=== PATIENT | male | born 1995 | race Caucasian/White ===

== ENCOUNTER 2023-10-01 19:16 | Emergency (ER) | payer SELFPAY ==
--- NOTE | ~2023-10-01 | CT_ITS ---
Noncontrast CT scan of the cervical spine Technique: Multiple contiguous axial [address] images of the cervical spine were obtained and rec onstructed in 2D sagittal and coronal planes on the acquisition scanner. Dose reduction technique was used on this scan by utilizing automated exposure control, adjustment of the mA and/or kV according to patient size. The dose-length product (DLP) was 316.12 mGy-cm. Clinical History: Pain Findings: No fractures or dislocations. Unremarkable visualized bony structures. The intervertebral disc spaces are preserved. No prevertebral soft tissue swelling. Impression: No fracture or subluxation of the cervical spine. Reviewed, dictated and finalized at location . ING PANTOGRAPH MACHINE OPERATOR Impression: No fracture or subluxation of the cervical spine.
--- NOTE | ~2023-10-01 | CT_ITS ---
Noncontrast CT scan of the lumbar spine CLINICAL HISTORY: Status post fall TECHNIQUE: Axial noncontrast imaging of the lumbar spine was performed. Sagittal and coronal reformat suzanne images were constructed. Dose reduction technique was used on this scan by utilizing automated ex posure control and iterative reconstruction technique. The dose-length product (DLP) was 424.79 mGy-c m. FINDINGS: There is no fracture or subluxation of the lumbar spine. Vertebral bodies maintain normal h eight and alignment. Intervertebral disc spaces are well preserved. No significant disc bulge or herniation evident at any lumbar level. There is no spinal canal stenosi s. There is mild to moderate neural foraminal narrowing bilaterally at L5-S1. Remaining neural forami na are preserved. Paravertebral soft tissues are unremarkable. Impression: No acute abnormality. Bilateral neural foraminal narrowing at L5-S1, as detailed above. Reviewed, dictated and finalized at [facility]. ETRICS CONSULTANT Impression: No acute abnormality. Bilateral neural foraminal narrowing at L5-S1, as detailed above.
--- NOTE | ~2023-10-01 | CT_ITS ---
Non-contrast Head CT History: Status post fall Technique: Axial non-contrast imaging of the brain was performed. Dose reduction technique was used on this scan by utilizing automated exposure control and iterative reconstruction technique. The dose -length product (DLP) was 605.33 mGy-cm. Findings: There is no evidence of intracranial hemorrhage, mass lesion, or acute infarct. Brain par enchyma appears normal. The ventricles and subarachnoid spaces are normal in size. The calvarium ap pears normal. The visualized paranasal sinuses and mastoid air cells are clear. Impression: No significant abnormality seen. Reviewed, dictated and finalized at location . ING MACHINE TENDER HELPER Impression: No significant abnormality seen.
[2023-10-01 19:16] VITALS: BP 129/65; PULSE 108; RESP 18; TEMP 36.9; O2SAT 97
--- NOTE | 2023-10-01 19:22 | ED.GENADULT ---
HPI - General Adult General Chief complaint: Fall Stated complaint: etoh induced fall Time Seen by Provider: 10/01/23 19:18 History of Present Illness HPI narrative: This is a 28-year-old male presenting ED after a fall. Patient was drinking a massive amount of alcohol today for the [employer]. He then states that he woke up emergency for people on scene he fell backwards and struck his head lost consciousness. They then called EMS brought hospital. patient is complaining of headache and pain in his lower back which he says he has broken twice. No neurologic deficits Related Data Allergies Allergy/AdvReac Type Severity Reaction Status Date / Time No Known Allergies Allergy Unverified 11/17/15 22:25 [facility] Family History Family History (Updated 09/25/17 @ 14:19 by DOCTOR UNKNOWN) Father Family history of mental disorder Patient's father is in good health Family history of arthritis Mother Asthma Patient's mother is in good health Social History Social History (Updated 10/21/19 @ 10:28 by Sita Thomas) Social History: Single Smoking packs per day: 0.5 Smoking cigarettes per day: 10.0 Smoking status: Former smoker Tobacco type: cigarettes and e-cigarettes/vaping Second hand tobacco smoke exposure: Yes Smoking end date: 06/21/19 Alcohol intake: current Alcohol use details: socially Substance use: never Substance use type: does not use Living arrangements: with family Occupation/Education: occupation Gender identity (if verbalized by the patient): Male Exam Narrative: APPEARANCE: smells of alcohol. patient is wearing a pair of [employer] boxers and nothing else. When asked to give thumbs up on both of his hands the patient raised his middle fingers above his head and flicked off the room. Head: atraumatic. EYES: EOMI, CURTIS NOSE: Atraumatic NECK: no midline cervical tenderness, midline lumbar tenderness RESPIRATORY: No increased rate of breathing, CTAB CARDIOVASCULAR: RRR, ABDOMINAL: Non-distended, soft nontender no guarding rebound MUSCULOSKELETAl: No obvious deformities NEURO: Alert. Cranial nerves 2-12 grossly intact. Sensation light touch, motor function cerebellar function intact for 4 extremities. SKIN:: Warm, dry. Normal color PSYCHIATRIC: Normal affect Course Vital Signs Vital signs: Vital Signs Temperature 98.5 F 10/01/23 19:16 Pulse Rate 108 H 10/01/23 19:16 Respiratory Rate 18 10/01/23 19:16 Blood Pressure 129/65 10/01/23 19:16 Pulse Oximetry 97 10/01/23 19:16 Oxygen Delivery Room Air 10/01/23 19:16 Temperature 98.5 F 10/01/23 19:25 Pulse Rate 95 10/01/23 19:25 Respiratory Rate 18 10/01/23 19:25 Blood Pressure 129/65 10/01/23 19:25 Pulse Oximetry 95 10/01/23 19:25 Oxygen Delivery Room Air 10/01/23 19:16 Medical Decision Making MDM Narrative Medical decision making narrative: -Course: 28-year-old male presenting intoxicated after a fall. CTs of head C-spine and L-spine unremarkable. Patient was discharged into family custody. -DDX includes but is not limited to: Alcohol intoxication, ICH, concussion -Co-morbidities complicating care: ETOH -Hx from independent Sources: EMS -Independent interpretation of studies: trauma imaging negative -Shared decision making / Disposition: Discharged Vital Signs Vital Signs: Vital Signs Temperature 98.5 F 10/01/23 19:16 Pulse Rate 108 H 10/01/23 19:16 Respiratory Rate 18 10/01/23 19:16 Blood Pressure 129/65 10/01/23 19:16 Pulse Oximetry 97 10/01/23 19:16 Oxygen Delivery Room Air 10/01/23 19:16 Temperature 98.5 F 10/01/23 19:25 Pulse Rate 95 10/01/23 19:25 Respiratory Rate 18 10/01/23 19:25 Blood Pressure 129/65 10/01/23 19:25 Pulse Oximetry 95 10/01/23 19:25 Oxygen Delivery Room Air 10/01/23 19:16 Discharge Plan Discharge Clinical Impression: Fall, ETOH abuse Patient Disposition: Home,
[2023-10-01 19:25] VITALS: BP 129/65; PULSE 95; RESP 18; TEMP 36.9; O2SAT 95
== END 2023-10-01 21:15 | disposition home or self-care (01) ==
LOC: ANHED 20:17
PROVIDERS: Emergency Provider Emergency Medicine
DX: S06.9X9A Unspecified intracranial injury with loss of consciousness of unspecified duration, initial encounter (principal); S39.92XA Unspecified injury of lower back, initial encounter; F10.129 Alcohol abuse with intoxication, unspecified; Z87.891 Personal history of nicotine dependence; Y90.9 Presence of alcohol in blood, level not specified; W18.39XA Other fall on same level, initial encounter
CPT/HCPCS: 70450; 72125; 72131; 99284

== ENCOUNTER 2025-06-12 23:01 | Emergency (ER) | payer BC, SELFPAY ==
--- NOTE | ~2025-06-12 | CT_ITS ---
EXAMINATION: CT abdomen pelvis wo con DATE: 06/12/2025 23:33 INDICATION: Right inguinal hernia TECHNIQUE: Computed tomography (CT) of the abdomen and pelvis was performed without intravenous contrast. The dose-length product was 201.42 mGy-cm. Automated exposure control and iterative reconstruction technique were employed. COMPARISON: None. FINDINGS: Lung bases unremarkable. Heart size normal. No significant pleural or pericardial effusion. The liver, spleen, pancreas, adrenal glands and kidneys are unremarkable. Gallbladder is present. Nonobstructive bowel gas pattern. There is fat stranding in the right inguinal subcutaneous tissues with underlying lymphadenopathy, suspicious for cellulitis. No abscess. No evidence for hernia. There is grade 1 degenerative spondylolisthesis at L5-S1. No acute osseous abnormality. IMPRESSION: 1. Fat stranding of the right inguinal subcutaneous soft tissues with underlying lymphadenopathy, suspicious for cellulitis with reactive lymph node enlargement. Reviewed, dictated and finalized at location O. IMPRESSION: 1. Fat stranding of the right inguinal subcutaneous soft tissues with underlyin g lymphadenopathy, suspicious for cellulitis with reactive lymph node enlargeme nt.
--- OUTSIDE RECORDS SUMMARY | 2025-06-12 23:03 | XMS_ITS | Clinical Summary ---
Author Organization [facility] Address [facility] [place] [address] Care Team Providers Care Manager Government Name Role Phone Holden Sita Karen DRILL SHARPENER OPERATOR Primary Care Provider Unavailable Allergies No known active allergies Medications escitalopram 10 MG tablet Take 10 mg by mouth daily. Active ondansetron 4 MG disintegrating tablet Take 1 tablet (4 mg total) by mouth every 8 (eight) hours as needed for Nausea. 10 tablet Active Social History Tobacco Use Types Packs/Day Years Used Date Smoking Tobacco: Never Assessed Sex and Gender Information Value Date Recorded Sex Assigned at Not on file Legal Sex Male 6:55 PM CDT Gender Identity Not on file Sexual Orientation Not on file Last Filed Vital Signs Vital Sign Reading Time Taken Comments Blood Pressure 114/69 06/12/2021 3:00 PM CDT Pulse 62 06/12/2021 3:00 PM CDT Temperature 36.6 C (97.9 F) 06/12/2021 1:28 PM CDT Respiratory Rate 20 06/12/2021 3:00 PM CDT Oxygen Saturation 97% 06/12/2021 3:00 PM CDT Inhaled Oxygen Concentration - - Weight 56.2 kg (124 lb) 06/12/2021 1:28 PM CDT Height 167.6 cm (5' 6) 06/12/2021 1:28 PM CDT Body Mass Index 20.01 06/12/2021 1:28 PM CDT Plan of Treatment Health Maintenance Due Date Last Done Comments Annual Physical 1999 Hepatitis C 2014 DTaP, Tdap and Td Vaccines ( 2 - Tdap) 2015 10/20/1997 Hepatitis B Vaccines (1 of 3 - 19+ 3-dose series) 2015 HPV Vaccines (1 - 3-dose SCD M series) 2023 COVID-19 Vaccine (3 - 2024-2 6 season) 2025 12/07/2020, 11/09/2020 Influenza Adult (#1) 2025 Hepatitis A Vaccines Aged Out No long er eligible based on patient's age to complete this topic Meningococcal B Vaccine Aged Out No l onger eligible based on patient's age to complete this topic Meningococcal Vaccine Aged Out No lorelei ora eligible based on patient's age to complete this topic Pneumococcal Vaccine: Pediatrics (0 to 5 Years) and At-Risk Patients (6 to 49 Years) Aged Out No longer eligible b ased on patient's age to complete this topic RSV Immunizations Under 20 Months Aged Out No longer eligible b ased on patient's age to complete this topic Insurance Care Teams Manager Government Relationship Specialty Start Date End Date Sita Hatch FNP PCP - General Nurse Practitioner Family 06/12/21
[2025-06-12 23:06] VITALS: BP 143/95; PULSE 71; RESP 16; TEMP 36.4; O2SAT 99
--- NOTE | 2025-06-12 23:23 | ED.MALEGU ---
HPI - Male Genitourinary General Chief complaint: Urogenital-Male Stated complaint: right groin pain, swelling Time Seen by Provider: 06/12/25 23:05 History of Present Illness HPI Narrative: 29-year-old otherwise healthy male presenting to the emergency depart with right groin pain and swelling as well as rash to his inguinal region. Patient states for last week he has been having a wet rash in between his gently region bilateral inguinal region that is very itchy. He states he has tried some gold Gandara powder as well as hydrocortisone cream with no help. Take Tylenol for the pain with no help. He started feeling a red painful area that was tender to palpation the right groin. 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 No history of hernias. Was otherwise in his normal state of health. No nausea, vomiting, dysuria, hematuria, constipation, obstipation, lack of flatus, bloody diarrhea. Tolerating oral intake. No traumatic injuries. Denies any history of STDs or concerns for STDs at this time. No urethritis type symptoms. No dysuria. No discharge. States that he scratched himself significantly in the inguinal region trying to alleviate the itchiness and now has some excoriations there. Related Data Allergies Allergy/AdvReac Type Severity Reaction Status Date / Time No Known Allergies Allergy Verified 06/12/25 23:09 [facility] Family History Family History (Updated 09/25/17 @ 14:19 by DOCTOR UNKNOWN) Father Family history of mental disorder Patient's father is in good health Family history of arthritis Mother Asthma Patient's mother is in good health Social History Social History (Updated 10/21/19 @ 10:28 by Sita Thomas) Social History: Single Smoking packs per day: 0.5 Smoking cigarettes per day: 10.0 Smoking status: Former smoker Tobacco type: cigarettes and e-cigarettes/vaping Second hand tobacco smoke exposure: Yes Smoking end date: 06/21/19 Alcohol intake: current Alcohol use details: socially Substance use: never Substance use type: does not use Living arrangements: with family Occupation/Education: occupation Gender identity (if verbalized by the patient): Male Exam Narrative: GENERAL: [Well-appearing, well-nourished, and in no acute distress.] HEAD: [Normocephalic, atraumatic.] EYES: [PERRLA and EOMI.] ENT: Nares clear, no rhinorrhea or epistaxis. Mucous membranes moist. NECK: Supple. CHEST: [Clear to auscultation. No respiratory distress.] HEART: [Regular rate and rhythm]. No murmur heard. [Normal peripheral pulses.] ABDOMEN: [Soft, nondistended], [nontender], [No rigidity or guarding] : Inguinal canal has a right-sided inguinal hernia versus lymph node that is soft without any overlying skin changes. Tender to palpation. The intertriginous areas in both inguinal canals have what appears to be of red erythematous irritated rash and on the right side has some excoriations that appear broad based and shallow without any bleeding. No penile lesions, no penile discharge. EXTREMITIES: Normal range of motion. [No edema.] SKIN: Warm, dry, no rash. NEURO: [No focal deficits]. Alert and oriented [x3.] PSYCH: [Normal mood and affect.] Course Vital Signs Vital signs: Vital Signs Temperature 36.4 C 06/12/25 23:06 Pulse Rate 71 06/12/25 23:06 Respiratory Rate 16 06/12/25 23:06 Blood Pressure 143/95 H 06/12/25 23:06 Pulse Oximetry 99 06/12/25 23:06 Oxygen Delivery Room Air 06/12/25 23:06 Temperature 36.4 C 06/12/25 23:06 Pulse Rate 71 06/12/25 23:06 Respiratory Rate 16 06/12/25 23:06 Blood Pressure 143/95 H 06/12/25 23:06 Pulse Oximetry 99 06/12/25 23:06 Oxygen Delivery Room Air 06/12/25 23:06 MDM - Male Genitourinary MDM Narrative Medical decision making narrative: 29-year-old otherwise healthy male presenting to the emergency depart with right groin pain and swelling as well as rash to his inguinal region. Patient states for last week he has been having a wet rash in between his gently region bilateral inguinal region that is very itchy. He states he has tried some gold Gandara powder as well as hydrocortisone cream with no help. Take Tylenol for the pain with no help. He started feeling a red painful area that was tender to palpation the right groin. 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 No history of hernias. Was otherwise in his normal state of health. No nausea, vomiting, dysuria, hematuria, constipation, obstipation, lack of flatus, bloody diarrhea. Tolerating oral intake. No traumatic injuries. Denies any history of STDs or concerns for STDs at this time. No urethritis type symptoms. No dysuria. No discharge. States that he scratched himself significantly in the inguinal region trying to alleviate the itchiness and now has some excoriations there. Inguinal canal has a right-sided inguinal hernia versus lymph node that is soft without any overlying skin changes. Tender to palpation. The intertriginous areas in both inguinal canals have what appears to be of red erythematous irritated rash and on the right side has some excoriations that appear broad based and shallow without any bleeding. No penile lesions, no penile discharge. Patient hemodynamically stable without any fever, tachycardia or hypoxemia. Unremarkable abdominal examination otherwise. Suspicion for potential skin irritation or infection such as yeast infection given that he works and a moist environment and states he frequently gets chafe venous between his legs versus something like a sexually transmitted disease given the ulcerations/excoriations. Patient is adamant that he scratched his wounds open and that they are not there previously but they were intensely itchy. Possibility of something like HSV/genital herpes verses gonorrhea, chlamydia, Trichomonas. Does have a tender area in the right inguinal canal consistent with either a tender lymph nodes/movement without any overlying skin changes versus more likely inguinal hernia. IV was established, basic labs obtained, CT scan ordered. Culture of the wounds and HSV test ordered. Gonorrhea chlamydia Trichomonas and urinalysis ordered. CT scan shows no hernia but does have anal lymphadenopathy consistent with exam findings. No fluid collections, no subcutaneous emphysema. No intra-abdominal process otherwise. Patient's STD panel so far is negative. Culture results will be sent out and patient was leave the results on this portal and made aware of this. Re-evaluated and his rash did improve with the miconazole cream but he still had the shallow base tender ulcers so we will treat him empirically for HSV2. He was given a dose of valacyclovir and prescribed both medications. Will follow up with his regular doctor. Medical Records Attestation: I reviewed the patient's medical records. Lab Data Attestation: I reviewed the patient's lab results. 06/12/25 23:47 06/12/25 23:47 Labs: Lab Results 06/12/25 06/12/25 Range/Units 23:47 23:48 WBC 6.5 (4.5-10.0) K/mm3 RBC 4.75 (4.6-6.20) M/mm3 Hgb 14.5 (14.0-18.0) g/dL Hct 43.1 (42.0-52.0) % MCV 90.7 (80-100) fl MCH 30.5 (26-34) pg MCHC 33.6 (32-36) g/dl RDW 12.8 (11.5-14.5) % Plt Count 255 (150-375) k/mm3 MPV 9.1 (7.4-10.4) fl Immature Gran % (Auto) 0.6 H (0-0.5) % Neut % (Auto) 43.0 L (45.5-73.1) % Lymph % (Auto) 38.2 (18.3-44.2) % [place] % (Auto) 12.6 H (2.6-8.5) % Eos % (Auto) 4.5 H (0-4.4) % Baso % (Auto) 1.1 (0.2-1.2) % Lymph # (Auto) 2.48 (0.9-3.2) K/mm3 [place] # (Auto) 0.8 H (0.1-0.6) K/mm3 Eos # (Auto) 0.3 (0-0.3) K/mm3 Baso # (Auto) 0.1 (0.0-0.1) K/mm3 Abs Immat Gran (auto) 0.04 H (0.00-0.031) K/mm3 Absolute Neuts (auto) 2.8 (1.3-6.7) K/mm3 Absolute Nucleated RBC 0.000 (0.0-0.012) K/mm3 Nucleated RBC % 0.0 (0.0-0.2) % Sodium 135 L (137-145) mmol/L Potassium 4.3 (3.4-5.0) mmol/L Chloride 104 (98-107) mmol/L Carbon Dioxide 27 (22-30) mmol/L Anion Gap 4 (4-12) mmol/L BUN 14 (9-20) mg/dL Creatinine 0.96 (0.7-1.3) mg/dL Estim Creat Clear Calc 86 ml/min Estimated GFR > 60 (59 - ) Glucose 113 H (65-110) mg/dL Calcium 9.5 (8.4-10.2) mg/dL Total Bilirubin 0.3 (0.2-1.3) mg/dL AST 36 (17-59) U/L ALT 22 (6-50) U/L Alkaline Phosphatase 67 (38-126) U/L Total Protein 7.3 (6.3-8.2) g/dL Albumin 4.2 (3.5-5.1) g/dL Urine Color Yellow (Yellow) Urine Appearance Clear (Clear) Urine pH 6.0 (5.0-9.0) Ur Specific [place] 1.026 (1.001-1.035) Urine Protein Negative (Negative) mg/dL Urine Glucose (UA) Negative (Negative) mg/dL Urine Ketones Trace H (Negative) mg/dL Ur Blood (Man) Negative (Negative) Urine Nitrate Negative (Negative) Urine Bilirubin Negative (Negative) Urine Urobilinogen 1.0 (<2.0) mg/dL Leukocyte Esterase Rfl Negative (Negative) FIDELIA/UL C. trachomatis (PCR) Not detected (NOT DETECTE) N. gonorrhoeae (PCR) Not detected (NOT DETECTE) T. vaginalis (PCR) Not detected (NOT DETECTE) Imaging Data Attestation: I personally reviewed and interpreted this imaging study as follows: My impression: Inguinal lymphadenopathy right-sided Discharge Plan Discharge Clinical Impression: Herpetic lesion, Skin yeast infection, Inguinal lymphadenopathy Patient Disposition: Home Condition: Stable Instructions: Antibiotic Form, Genital Herpes Infection (ED), Skin Yeast Infection (ED) Additional Instructions: CT scan shows inguinal lymphadenopathy or inflamed lymph nodes. No signs of hernia. Symptoms did improve with miconazole cream but the shallow based ulcerations look potentially herpetic in nature. Will treat this empirically for genital herpes as well as yeast infection with antiviral is and cream. Follow-up with your primary care provider and the culture tests are sent out and will be available in your portal upon results. Patient Language: Cymro Prescriptions: New valacyclovir 1 gram tablet 1,000 mg PO Q12H 7 Days Qty: 14 0RF miconazole nitrate 2 % cream 1 applic topical BID Qty: 14 0RF Follow-up/Referrals: PHYSICIAN,FUEL CELL DESIGNER [Primary Care Provider, Internal Medicine] Time of Disposition: 03:03
[2025-06-12] MEDS: MICONAZOLE NITRATE 2% CREAM 30 GM TUBE 1 APPLIC TOPICAL (23:53)
[2025-06-13 00:02] LABS: Add Urine Microscopic? NO; Appearance Urine Clear (Clear); Glucose Urine UA Negative (Negative); Leukocyte Esterase Ur Negative LEU/UL (Negative); Nitrate Urine Negative (Negative); Specific Grav Ur 1.026 (1.001-1.035)
[2025-06-13 00:07] LABS: Alanine Aminotransferase 22 U/L (6-50); Albumin Level 4.2 g/dL (3.5-5.1); Alkaline Phosphatase 67 U/L (38-126); Anion Gap 4 mmol/L (4-12); Aspartate Amino Transferase 36 U/L (17-59); Bilirubin,Total 0.3 mg/dL (0.2-1.3); Blood Urea Nitrogen 14 mg/dL (9-20); Calcium 9.5 mg/dL (8.4-10.2); Carbon Dioxide 27 mmol/L (22-30); Chloride 104 mmol/L (98-107); Estimated CRCL calculation 86 ml/min; Estimated Glomerular Filt Rate > 60; Glucose 113 mg/dL (65-110); Potassium 4.3 mmol/L (3.4-5.0); Sodium 135 mmol/L (137-145); Total Protein 7.3 g/dL (6.3-8.2)
[2025-06-13 00:15] LABS: Hematocrit 43.1 % (42.0-52.0); Hemoglobin 14.5 g/dL (14.0-18.0); Immature Granulocyte Percent A 0.6 % (0-0.5); Lymphocytes Absolute Auto 2.48 K/mm3 (0.9-3.2); Mean Corpuscular HGB Conc 33.6 g/dl (32-36); Mean Corpuscular Hemoglobin 30.5 pg (26-34); Mean Corpuscular Volume 90.7 fl (80-100); Nucleated Red Blood Cells Absolute Auto 0.000 K/mm3 (0.0-0.012); Nucleated Red Blood Cells Perc 0.0 % (0.0-0.2); Platelet Count Result 255 k/mm3 (150-375); Red Blood Count 4.75 M/mm3 (4.6-6.20); White Blood Count 6.5 K/mm3 (4.5-10.0)
[2025-06-13 01:06] LABS: Trichomonas Vag PCR NOT DETECTED (NOT DETECTE)
== END 2025-06-13 03:17 | disposition home or self-care (01) ==
PROVIDERS: Emergency Provider Student in an Organized Health Care Education/Training Program
DX: R59.1 Generalized enlarged lymph nodes (principal); B37.2 Candidiasis of skin and nail; K76.9 Liver disease, unspecified; Z87.891 Personal history of nicotine dependence
CPT/HCPCS: 36415; 74176; 80053; 81003; 85025; 87070; 87075; 87076; 87077; 87147; 87186; 87255; 87491; 87591; 87661; 99284; A9270